=== PATIENT | male | born 1995 | race African-American/Black ===

== ENCOUNTER 2019-04-22 22:05 | Emergency (ER) | payer SELFPAY ==
[2019-04-22] MEDS ORDERED: Azithromycin 250 MG TAB ONE (22:22)
[2019-04-22] MEDS ORDERED: cefTRIAXone\\ROCEPHIN 250 MG VIAL ONE (22:22)
[2019-04-22] MEDS ORDERED: Lidocaine 1% PF 5 ML VIAL ONE (22:23)
[2019-04-22 22:36] LABS: Bacteria/HPF None Seen HPF (None Seen); Bilirubin Negative (Negative); Blood, Urine Negative (Negative); Clarity Clear (Clear); Glucose, Urine (Dipstick) Normal (Negative); Leukocyte 25 Leu/uL (Negative); Mucous/LPF 1+ LPF (<2+); Nitrite Negative (Negative); Protein, Urine (Dipstick) 10 mg/dL (Neg-Trace); RBC/HPF 0-3 HPF (0-3); Squamous Epithelial 0-3 HPF (0-3); Urobilinogen 3 mg/dL (Less than 2)
== END 2019-04-22 22:44 | disposition home or self-care (01) ==
LOC: ERS 22:05
DX: N34.2 Other urethritis (principal); Z20.2 Contact with and (suspected) exposure to infections with a predominantly sexual mode of transmission; F17.210 Nicotine dependence, cigarettes, uncomplicated
CPT/HCPCS: 81003; 81015; 87491; 87591; 96372; 99406; J0696; J2001

== ENCOUNTER 2019-05-13 09:47 | Emergency (ER) | payer SELFPAY | END 2019-05-13 12:18 | disposition home or self-care (01) | LOC: ERS 09:47 | DX: Z11.3 Encounter for screening for infections with a predominantly sexual mode of transmission (principal); F41.9 Anxiety disorder, unspecified; F31.9 Bipolar disorder, unspecified; F17.210 Nicotine dependence, cigarettes, uncomplicated | CPT/HCPCS: 99281 ==

== ENCOUNTER 2024-01-06 17:42 | Inpatient (IN) | payer OTHER, SELFPAY ==
[2024-01-06] MEDS ORDERED: LORazepam 2 MG/ML SYR.(CARPUJECT) ONE (18:17)
[2024-01-06 18:33] LABS: #Basophils 0.03 10x3/uL (0.0-0.2); #Eosinphils Less than 0.03 10x3/uL (0.0-0.7); %Basophils 0.5 % (0.0-1.0); %Eosinophils 0.2 % (0.0-10.0); %Lymphocytes 26.8 % (21.0-51.0); %Neutrophils 63.3 % (42.0-75.0); Hematocrit 41.6 % (42.0-52.0); Hemoglobin 13.4 g/dL (14.0-18.0); Mean Corpuscular HGB CONC 32.2 g/dL (32.0-36.0); Mean Corpuscular Hemoglobin 29.5 pg (27.0-31.0); Mean Corpuscular Volume 91.6 fL (78.0-98.0); Mean Platelet Volume 12.4 fL (7.4-10.4); Platelet Count 126 10x3/uL (130-400); RBC Distribution Width 13.2 % (11.5-14.5); Red Blood Cell (RBC) Count 4.54 mill/uL (4.70-6.10)
[2024-01-06 18:39] LABS: Acetaminophen Less than 10 mcg/mL (10.0-30.0); Alcohol Less than 10.0 mg/dL (Less than 10); Magnesium 1.9 mg/dL (1.6-2.6); Salicylate Less than 8.0 mg/dL (15.0-30.0)
[2024-01-06 18:40] LABS: ALT (SGPT) 22 U/L (8-55); AST (SGOT) 51 U/L (5-34); Albumin 4.6 g/dL (3.5-5.0); Alkaline Phosphatase 53 U/L (40-110); Anion Gap 16 mmol/L (10-20); BUN (Urea Nitrogen) 16 mg/dL (8.9-20.6); Bilirubin, Total 1.3 mg/dL (0.2-1.2); CK (CPK) 2132 U/L (30-200); Calc. Creatinine Clearance 0 mL/min (70-130); Calcium 9.4 mg/dL (7.8-10.44); Carbon Dioxide 23 mmol/L (22-29); Chloride 106 mmol/L (98-107); Estimated GFR 86; Globulin 3.2 g/dL (2.4-3.5); Glucose 105 mg/dL (70-105); Potassium 3.6 mmol/L (3.5-5.1); Protein, Total 7.8 g/dL (6.0-8.3); Sodium 141 mmol/L (136-145)
[2024-01-06 18:45] LABS: Troponin I Less than 0.010 ng/mL (< 0.028)
[2024-01-06 19:02] LABS: Amphetamine Not Detected (NotDetected); Barbiturates Screen Not Detected (NotDetected); Benzodiazepine Screen Not Detected (NotDetected); Cocaine Metabolite Screen Not Detected (NotDetected); Methadone Not Detected (NotDetected); Methamphetamine Not Detected (NotDetected); Opiate Screen Not Detected (NotDetected); Oxycodone Screen Not Detected (NotDetected); Phencyclidine (PCP) Not Detected (NotDetected); THC/Cannabinoid Screen Not Detected (NotDetected); Tricyclic Screen Not Detected (NotDetected)
[2024-01-06] MEDS ORDERED: traMADol HCl 50 MG TAB PO PRN (19:51)
[2024-01-06] MEDS ORDERED: Ondansetron ODT 4 MG TAB PO PRN (19:51)
[2024-01-06 22:29] LABS: Acetaminophen Less than 10 mcg/mL (10.0-30.0); Salicylate Less than 8.0 mg/dL (15.0-30.0)
[2024-01-06 22:40] VITALS: BMI 25.2
[2024-01-06 22:42] LABS: Alcohol Less than 10.0 mg/dL (Less than 10)
[2024-01-06] MEDS: Acetaminophen 325 MG TAB PO SCH (22:46)
[2024-01-06] MEDS: Sodium Chloride 0.9% 1,000 ML IV SCH (22:52)
[2024-01-07 05:13] LABS: #Basophils Less than 0.03 10x3/uL (0.0-0.2); %Basophils 0.4 % (0.0-1.0); %Eosinophils 1.2 % (0.0-10.0); %Lymphocytes 35.7 % (21.0-51.0); %Monocytes 9.9 % (0.0-10.0); %Neutrophils 52.6 % (42.0-75.0); Hematocrit 38.6 % (42.0-52.0); Hemoglobin 12.2 g/dL (14.0-18.0); Mean Corpuscular HGB CONC 31.6 g/dL (32.0-36.0); Mean Corpuscular Hemoglobin 29.6 pg (27.0-31.0); Mean Corpuscular Volume 93.7 fL (78.0-98.0); Mean Platelet Volume 12.7 fL (7.4-10.4); Platelet Count 124 10x3/uL (130-400); RBC Distribution Width 13.3 % (11.5-14.5); Red Blood Cell (RBC) Count 4.12 mill/uL (4.70-6.10)
[2024-01-07 05:36] LABS: ALT (SGPT) 17 U/L (8-55); AST (SGOT) 45 U/L (5-34); Albumin 3.6 g/dL (3.5-5.0); Alkaline Phosphatase 49 U/L (40-110); Anion Gap 11 mmol/L (10-20); BUN (Urea Nitrogen) 13 mg/dL (8.9-20.6); Bilirubin, Total 1.3 mg/dL (0.2-1.2); Calc. Creatinine Clearance 105 mL/min (70-130); Calcium 8.5 mg/dL (7.8-10.44); Carbon Dioxide 24 mmol/L (22-29); Chloride 115 mmol/L (98-107); Estimated GFR 99; Globulin 2.6 g/dL (2.4-3.5); Glucose 98 mg/dL (70-105); Potassium 3.8 mmol/L (3.5-5.1); Protein, Total 6.2 g/dL (6.0-8.3); Sodium 146 mmol/L (136-145)
[2024-01-07] MEDS: Enoxaparin 40 MG (0.4 mL) SYRINGE SC SCH (09:59)
[2024-01-08 06:17] LABS: ALT (SGPT) 17 U/L (8-55); AST (SGOT) 47 U/L (5-34); Albumin 3.6 g/dL (3.5-5.0); Alkaline Phosphatase 50 U/L (40-110); Anion Gap 9 mmol/L (10-20); BUN (Urea Nitrogen) 12 mg/dL (8.9-20.6); Bilirubin, Total 0.9 mg/dL (0.2-1.2); CK (CPK) 1798 U/L (30-200); Calc. Creatinine Clearance 95 mL/min (70-130); Calcium 8.7 mg/dL (7.8-10.44); Carbon Dioxide 23 mmol/L (22-29); Chloride 113 mmol/L (98-107); Estimated GFR 88; Globulin 2.7 g/dL (2.4-3.5); Glucose 86 mg/dL (70-105); Protein, Total 6.3 g/dL (6.0-8.3); Sodium 141 mmol/L (136-145)
[2024-01-08] MEDS: Sodium Chloride 0.9% 1,000 ML IV SCH (16:52)
[2024-01-09 06:40] LABS: #Basophils Less than 0.03 10x3/uL (0.0-0.2); %Basophils 0.5 % (0.0-1.0); %Eosinophils 1.2 % (0.0-10.0); %Lymphocytes 48.8 % (21.0-51.0); %Monocytes 12.9 % (0.0-10.0); %Neutrophils 36.4 % (42.0-75.0); Hematocrit 39.3 % (42.0-52.0); Hemoglobin 12.6 g/dL (14.0-18.0); Mean Corpuscular HGB CONC 32.1 g/dL (32.0-36.0); Mean Corpuscular Volume 93.6 fL (78.0-98.0); Mean Platelet Volume 12.9 fL (7.4-10.4); Platelet Count 115 10x3/uL (130-400); RBC Distribution Width 13.2 % (11.5-14.5)
[2024-01-09 07:00] LABS: Anion Gap 12 mmol/L (10-20); BUN (Urea Nitrogen) 10 mg/dL (8.9-20.6); Calc. Creatinine Clearance 103 mL/min (70-130); Calcium 8.8 mg/dL (7.8-10.44); Carbon Dioxide 23 mmol/L (22-29); Chloride 112 mmol/L (98-107); Estimated GFR 97; Glucose 83 mg/dL (70-105); Potassium 3.5 mmol/L (3.5-5.1); Sodium 143 mmol/L (136-145)
[2024-01-10 05:02] LABS: #Basophils Less than 0.03 10x3/uL (0.0-0.2); %Basophils 0.5 % (0.0-1.0); %Eosinophils 0.9 % (0.0-10.0); %Monocytes 9.9 % (0.0-10.0); %Neutrophils 47.7 % (42.0-75.0); Hematocrit 38.4 % (42.0-52.0); Hemoglobin 12.3 g/dL (14.0-18.0); Mean Corpuscular Hemoglobin 29.7 pg (27.0-31.0); Mean Corpuscular Volume 92.8 fL (78.0-98.0); Mean Platelet Volume 12.9 fL (7.4-10.4); Platelet Count 121 10x3/uL (130-400); RBC Distribution Width 13.2 % (11.5-14.5); Red Blood Cell (RBC) Count 4.14 mill/uL (4.70-6.10)
[2024-01-10 05:17] LABS: Anion Gap 9 mmol/L (10-20); BUN (Urea Nitrogen) 7 mg/dL (8.9-20.6); Calc. Creatinine Clearance 100 mL/min (70-130); Calcium 8.8 mg/dL (7.8-10.44); Carbon Dioxide 22 mmol/L (22-29); Chloride 113 mmol/L (98-107); Estimated GFR 93; Glucose 90 mg/dL (70-105); Potassium 3.6 mmol/L (3.5-5.1); Sodium 140 mmol/L (136-145)
[2024-01-10 12:09] VITALS: BP 139/75; TEMP 98.2
== END 2024-01-10 12:39 | DRG 918 ==
LOC: EEVIPCON 17:42 → ERS 17:42 → 2SW 19:53 → OBSVTOIN 01-07 11:55
PROVIDERS: ADMIT Internal Medicine; ATTEND Family Medicine
DX: T43.022A Poisoning by tetracyclic antidepressants, intentional self-harm, initial encounter (principal); M62.82 Rhabdomyolysis; F32.A Depression, unspecified; Z79.899 Other long term (current) drug therapy
CPT/HCPCS: 36415; 51701; 76705; 80048; 80053; 80306; 80307; 82550; 83735; 84443; 84484; 85025; 93005; 96361; 96372; 96374; G0378; J1650; J2060; J7050